=== PATIENT | female | born 1990 | race Caucasian/White ===

== ENCOUNTER 2016-10-26 23:39 | Emergency (ER) | payer OTHER | END 2016-10-27 03:20 | disposition home or self-care (01) | LOC: ER 23:39 | DX: S81.811A Laceration without foreign body, right lower leg, initial encounter (principal); F31.9 Bipolar disorder, unspecified; E66.9 Obesity, unspecified; Z23 Encounter for immunization; Z79.899 Other long term (current) drug therapy; W18.30XA Fall on same level, unspecified, initial encounter | CPT/HCPCS: 90471; 96372; J2270; J2550 ==

== ENCOUNTER 2016-11-11 10:59 | Emergency (ER) | payer OTHER | END 2016-11-11 11:40 | disposition home or self-care (01) | LOC: ER 10:59 | DX: S81.811D Laceration without foreign body, right lower leg, subsequent encounter (principal); F31.9 Bipolar disorder, unspecified; Z79.899 Other long term (current) drug therapy; W01.198D Fall on same level from slipping, tripping and stumbling with subsequent striking against other object, subsequent encounter ==